=== PATIENT | female | born 1940 ===

== ENCOUNTER 2021-05-11 19:14 | Emergency (ER) | payer OTHER ==
[~2021-05-11] VITALS: Ht 162.6 cm; Wt 73.0 kg
[2021-05-11 23:00] VITALS: BP 192/83
== END 2021-05-12 00:30 | disposition home or self-care (01) ==
LOC: ER 19:14
DX: U07.1 COVID-19 (principal); I10 Essential (primary) hypertension
CPT/HCPCS: 36415; 71045; 87426